=== PATIENT | female | born 1995 | race Caucasian/White ===

== ENCOUNTER 2020-12-19 19:47 | Emergency (ER) | payer OTHER, SELFPAY ==
[2020-12-19 19:59] VITALS: BP 148/88; PULSE 104; RESP 16; TEMP 36.7; O2SAT 100
--- NOTE | 2020-12-19 19:59 | ED.ANIMALBIT ---
HPI - Animal Bite General Chief Complaint: Animal Bite Stated Complaint: cat Bite Time Seen by Provider: 12/19/20 19:59 Source: patient Mode of arrival: ambulatory Limitations: no limitations History of Present Illness HPI narrative: Buffy Parsons is a 25 yo female with no PMH who came to [facility] with cat bite to medial left forearm that occurred last night and has gotten red and indurated during the day. 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 EYES: Denies visual changes, redness, discharge. ENT: Denies rhinorrhea, congestion, sore throat, otalgia. CARDIOVASCULAR: Denies chest pain, palpitations, edema. RESPIRATORY: Denies dyspnea, wheezing, cough GASTROINTESTINAL: Denies abdominal pain, nausea, vomiting, diarrhea. GENITOURINARY: Denies dysuria, hematuria, abnormal discharge SKIN: Denies rash or itching. Cat bite to left forearm NEUROLOGIC: Denies numbness, or focal weakness. PSYCHIATRIC: Denies anxiety or depression. PMFSH Past Medical History Medical History (Updated 12/19/20 @ 20:06 by Fany Falcon CNP) No acute medical problems Family History Family History (Updated 12/19/20 @ 20:01 by Fany Falcon CNP) Father Hypertension Mother Diabetes mellitus Heart disease Social History Social History (Updated 12/19/20 @ 20:02 by Fany Falcon CNP) Smoking status: Never smoker Alcohol intake: current Gender identity (if verbalized by the patient): Female Comments At time of signature, I agree with nursing past medical, surgical, social and family history. There is no relevant family history pertinent to the presenting complaint. Blood pressure elevated due to anxiety and will follow up with PCP Exam Narrative: Exam Narrative: GENERAL: This is a well-nourished, well-developed patient, in mild distress. HEAD: normocephalic, atraumatic. EYES: PERRL. Sclera clear/white. Vision is grossly intact. EARS: External ears normal, auditory canals clear and without drainage, TMs normal without perforation. Hearing grossly intact. NOSE: External nose normal without nasal discharge, nares without redness, no rhinorrhea. THROAT: Mucous membranes moist, posterior pharynx NECK: Neck supple, non-tender CARDIOVASCULAR: Regular rate and rhythm without murmurs, gallops, or rubs. RESPIRATORY: Clear to auscultation. Breath sounds equal bilaterally. No wheezes, rales, or rhonchi. GASTROINTESTINAL: Abdomen soft, non-tender, SKIN: warm, intact with no suspicious lesions or rash, good texture and turgor. Left medial side of forearm she has a 4 x 5 red induration with scabbed puncture campos, movement intact. Finger opposition intact NEURO: awake, alert, and oriented to person, place and time. There were no obvious focal neurologic abnormalities. Steady gait EXTREMITIES: Normal range of motion. BACK: Nontender without deformity Course Course Emergency Course: Patient bitten by tech cat last night arm has gotten redder and more indurated throughout the day even though it was washed well last night and has been washed since then Augmentin 875 twice daily told reasons to go to ER including fever continue spread of infection Vital Signs Vital signs: Vital Signs Temperature 98.0 F 12/19/20 19:59 Pulse Rate 104 H 12/19/20 19:59 Respiratory Rate 16 12/19/20 19:59 Blood Pressure 148/88 H 12/19/20 19:59 Pulse Oximetry 100 12/19/20 19:59 Temperature 98.0 F 12/19/20 19:59 Pulse Rate 104 H 12/06
== END 2020-12-19 20:08 | disposition home or self-care (01) ==
PROVIDERS: Emergency Provider Nurse Practitioner
DX: S51.832A Puncture wound without foreign body of left forearm, initial encounter (principal); W55.01XA Bitten by cat, initial encounter; Y99.0 Civilian activity done for income or pay
CPT/HCPCS: 99213; G0463

== ENCOUNTER 2020-12-19 21:47 | Inpatient (IN) | payer OTHER, SELFPAY ==
--- NOTE | ~2020-12-19 | XR_ITS ---
EXAMINATION: XR forearm LT 2V EXAM DATE: 12/19/2020 23:00 INDICATION: Cat bite, possible infection, distal ulnar aspect swelling. TECHNIQUE: Left forearm frontal and lateral projections obtained and reviewed. There is no prior isrrael dy for comparison. FINDINGS: There are no acute left forearm fractures or dislocations identified. There is no subcutan eous gas. Subcutaneous edema noted over the ulnar aspect of the forearm. There are no radiopaque fo reign bodies. IMPRESSION: Soft tissue swelling. No gas or osseous erosion. Reviewed, dictated and finalized at location G.
[2020-12-19 22:30] VITALS: BP 164/89; PULSE 115; RESP 20; TEMP 36.6; O2SAT 98
[2020-12-19 23:05] LABS: Basophils Absolute Auto 0.1 K/mm3 (0.0-0.1); Basophils Percent Auto 0.4 % (0.2-1.2); Eosinophils Absolute Auto 0.1 K/mm3 (0-0.3); Eosinophils Percent Auto 0.5 % (0-4.4); Hematocrit 37.6 % (37.0-47.0); Hemoglobin 11.5 g/dL (12.0-15.0); Immature Granulocyte Absolute 0.09 K/mm3 (0.00-0.031); Immature Granulocyte Percent A 0.5 % (0-0.5); Lymphocytes Absolute Auto 2.57 K/mm3 (0.9-3.2); Lymphocytes Percent Auto 15.4 % (18.3-44.2); Mean Corpuscular HGB Conc 30.6 g/dl (32-36); Mean Corpuscular Hemoglobin 25.2 pg (26-34); Mean Corpuscular Volume 82.3 fl (80-100); Mean Platelet Volume 10.4 fl (7.4-10.4); Monocytes Absolute Auto 0.8 K/mm3 (0.1-0.6); Monocytes Percent Auto 4.5 % (2.6-8.5); Neutrophils Absolute Auto 13.2 K/mm3 (1.3-6.7); Neutrophils Percent Auto 78.7 % (45.5-73.1); Platelet Count Result 279 k/mm3 (150-375); Red Blood Count 4.57 M/mm3 (4.2-5.4); Red Cell Distribution Width 17.1 % (11.5-14.5); White Blood Count 16.7 K/mm3 (4.5-10.0)
[2020-12-19 23:19] LABS: Lactic Acid Reflex 2.6 mmol/L (0.7-2.1)
[2020-12-19 23:29] LABS: Alanine Aminotransferase 16 U/L (4-35); Albumin Level 4.3 g/dL (3.5-5.1); Alkaline Phosphatase 56 U/L (38-126); Anion Gap 8 mmol/L (8-16); Aspartate Amino Transferase 38 U/L (14-36); Bilirubin,Total 0.5 mg/dL (0.2-1.3); Blood Urea Nitrogen 12 mg/dL (7-17); Calcium 9.4 mg/dL (8.4-10.2); Carbon Dioxide 28 mmol/L (22-30); Chloride 101 mmol/L (98-107); Estimated CRCL calculation 115 ml/min; Estimated Glomerular Filt Rate > 60; Glucose 121 mg/dL (65-105); Potassium 3.9 mmol/L (3.4-5.0); Sodium 137 mmol/L (137-145)
[2020-12-20] VITALS (9 sets, daily range): BP systolic 111–139; BP diastolic 58–92; PULSE 102–143; RESP 12–25; TEMP 36.1–39.6; O2SAT 96–100
--- NOTE | 2020-12-20 01:26 | PC.NURSE ---
Pt presents to ED with complaints of cat bite that occurred 12/18/20 at approx 2330. Pain rated 6/10 at this time. Erythema and swelling noted to left forearm and site is painful with palpation. Pt also complaining of generalized body aches. Subjective fevers and chills. Denies nausea, emesis and diarrhea at this time. Vitals are stable and pt alert and oriented x4 and in no obvious distress at this time. Call button and personal items within reach. Family member at bedside. Pt advised to press call button and personal items within reach. EDMD presented to bedside.
[2020-12-20] MEDS: SODIUM CHLORIDE 0.9% IV 1,000 ML 999 ML IV CONT ×2 (01:41→03:10)
[2020-12-20 02:01] LABS: Reflex Lactic Acid Yes or No Add Lactic
--- NOTE | 2020-12-20 02:15 | ED.GENADULT ---
HPI - General Adult General Chief complaint: Animal Bite Stated complaint: Cat Bite L forearm Time Seen by Provider: 12/20/20 01:06 History of Present Illness HPI narrative: Patient a 25-year-old female who presents the emerge department with chief complaint of the left forearm cellulitis. Patient reports that she was bit by her cat last night and noticed that she started having redness and swelling in the left forearm. The patient reports has had some red streaking up her arm. The patient reports she had fever chills body aches and feels generally unwell after this is started. The patient states that this happened approximately 24 hours ago and has not been on antibiotics up until this point. Patient reports the pain is worse with movement and improved with rest. Related Data Home Medications Medication Instructions Recorded Confirmed duloxetine 30 mg PO DAILY 12/19/20 12/19/20 norgestimate-ethinyl estradiol 1 tablet DAILY 12/19/20 12/19/20 [[id number]] Allergies Allergy/AdvReac Type Severity Reaction Status Date / Time No Known Allergies Allergy Unverified 10/03/18 14:43 Review of Systems Review of Systems: Narrative: A 10 system review of systems was completed on the patient and is negative except for what is stated in the HPI. Nursing and ancillary documentation was reviewed. [facility] Past Medical History Medical History No acute medical problems Family History Family History Father Hypertension Mother Diabetes mellitus Heart disease Social History Social History Smoking status: Never smoker Alcohol intake: current Gender identity (if verbalized by the patient): Female Exam Narrative: Exam Narrative: GENERAL: Well-appearing, well-nourished, and in no acute distress. HEAD: Normocephalic, atraumatic. EYES: PERRLA and EOMI. ENT: Nares clear, no rhinorrhea or epistaxis. Mucous membranes moist. NECK: Supple. CHEST: Clear to auscultation. No respiratory distress. HEART: Regular rate and rhythm. No murmur heard. Normal peripheral pulses. ABDOMEN: Soft, nontender, nondistended, normal active bowel sounds. EXTREMITIES: Normal range of motion. No edema. SKIN: Warm, dry, there is erythema of the left forearm there is streaking lymphangitis present. NEURO: No focal deficits. Alert and oriented x3. PSYCH: Normal mood and affect. Course Vital Signs Vital signs: Vital Signs Temperature 36.6 C 12/19/20 22:30 Pulse Rate 115 H 12/19/20 22:30 Respiratory Rate 20 12/19/20 22:30 Blood Pressure 164/89 H 12/19/20 22:30 Pulse Oximetry 98 12/19/20 22:30 Temperature 39.6 C H 12/20/20 01:19 Pulse Rate 126 H 12/20/20 01:19 Respiratory Rate 19 12/20/20 01:19 Blood Pressure 139/83 12/20/20 01:19 Pulse Oximetry 98 12/20/20 01:19 Medical Decision Making Vital Signs Vital Signs: Vital Signs Temperature 36.6 C 12/19/20 22:30 Pulse Rate 115 H 12/19/20 22:30 Respiratory Rate 12/19/20 22:30 Blood Pressure 164/89 H 12/19/20 22:30 Pulse Oximetry 98 12/19/20 22:30 Temperature 39.6 C H 12/20/20 01:19 Pulse Rate 126 H 12/20/20 01:19 Respiratory Rate 12/20/20 01:19 Blood Pressure 139/83 12/20/20 01:19 Pulse Oximetry 98 12/20/20 01:19 Lab Data Result diagrams: 12/19/20 22:53 12/19/20 22:53 Labs: Lab Results 12/19/20 12/19/20 12/19/20 Range/Units 22:53 22:53 22:53 WBC 16.7 H (4.5-10.0) K/mm3 RBC 4.57 (4.2-5.4) M/mm3 Hgb 11.5 L (12.0-15.0) g/dL Hct 37.6 (37.0-47.0) % MCV 82.3 (80-100) fl MCH 25.2 L (26-34) pg MCHC 30.6 L (32-36) g/dl RDW 17.1 H (11.5-14.5) % Plt Count 279 (150-375) k/mm3 MPV 10.4 (7.4-10.4) fl Immature Gran % (Auto) 0.5 (0-0.5) % Neut % (
[2020-12-20] MEDS: AMPICILLIN SULB 3 GM/NS 100 ML 3 GM/100 ML VIAL IVPB ×4 (02:39→18:20)
[2020-12-20 03:02] LABS: Lactic Acid 1.8 mmol/L (0.7-2.1)
--- NOTE | 2020-12-20 03:13 | PC.NURSE ---
Pt ambulated to restroom with steady gait noted. Specimen cup provided. spouse remains at bedside. Pt alert and oriented x4 with stable vitals and is in no obvious distress. Call button and personal items within reach. Pt advised to press call button for assistance.
--- NOTE | 2020-12-20 05:12 | PC.NURSE ---
Report called to James. Prajapati to send pt to floor.
--- NOTE | 2020-12-20 05:49 | ADMGEN ---
This patient, Buffy Parsons, was admitted to [facility] Surg Room 310-01. Patient/family oriented to hospital policies and general routines including ID bracelet, bed and alarms, visiting hours, pain management, procedures, bathroom and other care routines, personal items, smoking policy, room service/diet, and visiting hours. Information on how to activate the Rapid Response Team has been discussed. Patient/Family are encouraged to report perceived risks to care and to ask questions if they do not understand what they are told or what they should do.
[2020-12-20] MEDS: SODIUM CHLORIDE 0.9% IV 1,000 ML 125 ML IV CONT ×2 (05:57→16:58)
--- NOTE | 2020-12-20 09:25 | PM.IMHP ---
H&P: HPI History of Present Illness Date/Time: 12/20/20 09:25 PATIENT IS ADMITTED UNDER OBSERVATION Chief Complaint: Cat bite Narrative: 25yo healthy female here for left wrist cat bite with swelling, fever and pain. On the evening on 12/18/20, the patient sustained a cat bite from her own cat. Immunizations are up to date. The cat is an indoor cat. The patient used neosporin and gauze that evening and applied the same prior to work the next day. She developed a small erythematous patch left distal forearm that began to grow then streak up the left arm. She developed edema to the left upper hand and forearm. She presented to an [facility] and was given Augmentinl. She filled the Rx and returned home but her partner noted that it wasmuch worse and patient came back to ED. She did not take any of the Augmentin. She developed fevers, chills and headcahe. No n/v but with decreased appetite. Intermittent nubness in the hand and slight weakness but still able to grasp without dropping items. In the ED, she had a temperature to 103.2 with HR to 143. Hypertensive on admission as well. Left arm xray showing soft tissue swelling but no gas or osseous erosion. WBC 16.7K with lactic acid 2.6 (repeat LA normal). She was given Tyelnol, IV fluids and Unasyn. She was admitted for further care. Review of Systems Review of Systems: All systems reviewed & are unremarkable except as noted in HPI and below PMFSH Past Medical History Medical History Depression with anxiety PCOS (polycystic ovarian syndrome) Seasonal allergies Surgical History Surgical History Uterine polyp s/p removal. Benign pathology Family History Family History Father Hypertension Mother Diabetes mellitus Social History Social History Social History: She lives at home with her fiancee. They have 2 cats and 1 dog. Lifelong nonsmoker. No history of drug use. She drinks 1 alcoholic drink per week. Full code. She nominates Keysha Parker as individual would make medical decisions for her if she is unable Smoking status: Never smoker Second hand tobacco smoke exposure: No Alcohol intake: current Drinks per week: 1 Substance use: former Gender identity (if verbalized by the patient): Female Spiritual care concerns: No Meds Home Medications and Allergies Home Medications Medication Instructions Recorded Confirmed Type amoxicillin-pot clavulanate 1 tablet PO Q12H #20 tablet 12/19/20 12/20/20 Rx [Augmentin] duloxetine 30 mg PO DAILY 12/19/20 12/20/20 History norgestimate-ethinyl estradiol 1 tablet DAILY 12/19/20 12/20/20 History [[id number]] Allergies Allergy/AdvReac Type Severity Reaction Status Date / Time No Known Allergies Allergy Unverified 10/03/18 14:43 Vital Signs Vital Signs - 24 hr 12/19/20 22:30 12/20/20 01:00 12/20/20 01:19 Temperature 97.9 F 102.9 F H 103.2 F H Pulse Rate 115 H 143 H 126 H Respiratory Rate 20 12 19 Blood Pressure 164/89 H 136/92 H 139/83 Pulse Oximetry 98 99 98 12/20/20 02:19 12/20/20 03:25 12/20/20 05:42 Temperature 102.2 F H 101.8 F H 100.8 F H Pulse Rate 118 H 116 H Respiratory Rate 25 H 22 H Blood Pressure 137/72 111/58 L Pulse Oximetry 96 97 12/20/20 05:45 12/20/20 09:19 Temperature 97.7 F Pulse Rate 126 H Respiratory Rate 16 Blood Pressure 135/70 Pulse Oximetry 99 97 Exam Narrative: Exam Narrative: Tm 103.2 97.7 135/70 126 16 97% ra Gen - well-nourished, well-developed female in no acute respiratory distress who is nontoxic-appearing lying semi recumbent in bed HEENT - normocephalic. Atraumatic. Pupils equal round and reactive. Extraocular motions intact. Sclera clear and anicteric. Nares patent. Oropharyn
[2020-12-20] MEDS: DULoxetine HCL 30 MG CAPSULE.DR PO (09:59)
[2020-12-20] MEDS: ENOXAPARIN 40 MG/0.4 ML SYRINGE SUB-Q (14:30)
--- NOTE | 2020-12-20 15:39 | PHAR ---
EYG-PL-UNALCF TABLETS BROUGHT IN FROM HOME HAVE BEEN IDENTIFIED BY PHARMACY
[2020-12-20] MEDS: HYDROcodone/acetaminophen (*CRX) 5-325 MG TABLET 1 TAB PO ×2 (16:00→21:24)
[2020-12-20] MEDS: MELATONIN 5 MG TABLET PO (21:27)
[2020-12-21] MEDS: AMPICILLIN SULB 3 GM/NS 100 ML 3 GM/100 ML VIAL IVPB ×5 (00:20→23:50)
[2020-12-21] MEDS: MORPHINE SULFATE (*CRX) 4 MG/ML INJ IV PUSH (01:31)
[2020-12-21] MEDS: ONDANSETRON INJ 4 MG/2 ML VIAL IV PUSH (01:32)
[2020-12-21] MEDS: SODIUM CHLORIDE 0.9% IV 1,000 ML 125 ML IV CONT ×2 (02:50→12:02)
[2020-12-21] MEDS: HYDROcodone/acetaminophen (*CRX) 5-325 MG TABLET 1 TAB PO ×4 (02:56→23:49)
[2020-12-21 06:00] VITALS: BP 141/74; PULSE 112; RESP 16; TEMP 38.6; O2SAT 100
[2020-12-21 06:51] LABS: Basophils Absolute Auto 0.1 K/mm3 (0.0-0.1); Basophils Percent Auto 0.4 % (0.2-1.2); Eosinophils Absolute Auto 0.1 K/mm3 (0-0.3); Eosinophils Percent Auto 0.3 % (0-4.4); Hematocrit 31.7 % (37.0-47.0); Immature Granulocyte Absolute 0.07 K/mm3 (0.00-0.031); Immature Granulocyte Percent A 0.5 % (0-0.5); Lymphocytes Absolute Auto 2.36 K/mm3 (0.9-3.2); Lymphocytes Percent Auto 15.7 % (18.3-44.2); Mean Corpuscular HGB Conc 31.5 g/dl (32-36); Mean Corpuscular Hemoglobin 25.8 pg (26-34); Mean Corpuscular Volume 81.7 fl (80-100); Mean Platelet Volume 10.6 fl (7.4-10.4); Monocytes Absolute Auto 0.7 K/mm3 (0.1-0.6); Monocytes Percent Auto 4.4 % (2.6-8.5); Neutrophils Absolute Auto 11.8 K/mm3 (1.3-6.7); Neutrophils Percent Auto 78.7 % (45.5-73.1); Platelet Count Result 219 k/mm3 (150-375); Red Blood Count 3.88 M/mm3 (4.2-5.4); Red Cell Distribution Width 17.2 % (11.5-14.5)
[2020-12-21 07:00] LABS: Alanine Aminotransferase 11 U/L (4-35); Albumin Level 3.3 g/dL (3.5-5.1); Alkaline Phosphatase 55 U/L (38-126); Anion Gap 5 mmol/L (8-16); Aspartate Amino Transferase 18 U/L (14-36); Bilirubin,Total 0.4 mg/dL (0.2-1.3); Blood Urea Nitrogen 6 mg/dL (7-17); Calcium 8.2 mg/dL (8.4-10.2); Carbon Dioxide 24 mmol/L (22-30); Chloride 107 mmol/L (98-107); Estimated CRCL calculation 128 ml/min; Estimated Glomerular Filt Rate > 60; Glucose 105 mg/dL (65-105); Potassium 3.6 mmol/L (3.4-5.0); Sodium 136 mmol/L (137-145)
[2020-12-21] MEDS: ENOXAPARIN 40 MG/0.4 ML SYRINGE SUB-Q (08:21)
[2020-12-21] MEDS: DULoxetine HCL 30 MG CAPSULE.DR PO (08:21)
--- NOTE | 2020-12-21 13:38 | PM.IMPN ---
Progress Note: A&P Assessment and Plan (1) Sepsis: Code(s): A41.9 - Sepsis, unspecified organism Status: Acute Assessment and Plan: Present on admission with elevated lactic acid, elevated white count, fever and tachycardia. Related to the cellulitis to the left forearm from cat bite. Treated with normal saline and started on IV antibiotics. BCx NGTD. Fever persistent and still mildly tachycardic related to the fevers. Repeat white count slightly better. Follow WBC. Stop IV fluids. (2) Cellulitis of forearm, left: Code(s): L03.114 - Cellulitis of left upper limb Status: Acute Assessment and Plan: Patient with erythema and edema to the left forearm. Associated with sepsis symptoms. Started on Unasyn Day 2. Clinical exam improved with receding erythema but still with fevers. WBC slightly better. Continue the same. Monitor clinical exam, WBC and fever curve to ensure improvement. Plan home with Augmentin. (3) Cat bite: Qualifiers: Encounter type: initial encounter Qualified Code(s): W55.01XA - Bitten by cat, initial encounter Code(s): W55.01XA - Bitten by cat, initial encounter Status: Acute Assessment and Plan: Patietn instructed to be mindful of provoking the cat and to keep up to date on the cat's routine health maintenance. (4) DVT prophylaxis: Code(s): Z29.9 - Encounter for prophylactic measures, unspecified Status: Acute Assessment and Plan: Lovenox Subjective Date/time seen: 12/21/20 13:38 Interval history: 25yo female her for sepsis from cellulitis related to a cat bite. Slept well last night. Still having fevers. Complains of shooting pain at times down left arm at times Exam Narrative: Exam Narrative: Tm 101.4 141/74 112 16 100% ra Gen - NARD Chest - CTA bilaterally, nml RR CV - RRR S1/S2 Abd - soft. NT/ND. +BS Ext - left hand and forearm edema but not tense. Psych - normal mood and affect. Skin - faint pink erythematous rash noted anterior and medial left forearm. Erythema fading from upper arm but with darker erythema in the forearm around the old puncture site. Objective Data Vital Signs Vital Signs: Vital Signs - 24 hr 12/20/20 14:00 12/20/20 21:54 12/21/20 06:00 Temperature 96.9 F L 101 F H 101.4 F H Pulse Rate 102 H 103 H 112 H Respiratory Rate 18 16 16 Blood Pressure 135/90 131/72 141/74 H Pulse Oximetry 100 99 100 Intake/Output Intake/Output: Intake & Output 12/18/20 12/19/20 12/20/20 12/21/20 23:59 23:59 23:59 23:59 Intake Total 5130 3350 Output Total 600 1700 Balance 4530 1650 Meds/Results Medications: Active Medications Generic Name Dose Route Start Last Admin Trade Name Freq PRN Reason Stop Dose Admin Acetaminophen 650 mg 12/20/20 15:30 Acetaminophen 325 Mg Tablet PO Q6H PRN Mild Pain (1-3) or Fever Hydrocodone Bitart/Acetaminophen 1 tab 12/20/20 15:30 12/21/20 08:52 Hydrocodone/Acetaminophen (*Crx) 5-325 Mg Tablet PO 1 tab Q6H PRN Administration Pain Rated 4-6 Duloxetine HCl 30 mg 12/20/20 09:00 12/21/20 08:21 Duloxetine Hcl 30 Mg Capsule.Dr PO 30 mg DAILY MICHELLE Administration Enoxaparin Sodium 40 mg 12/20/20 09:55 12/21/20 08:21 Enoxaparin 40 Mg/0.4 Ml Syringe SUB-Q 40 mg DAILY MICHELLE Administration Ampicillin Sodium/Sulbactam Sodium 3 gm in 100 mls @ 200 mls/hr 12/20/20 07:00 12/21/20 12:02 Unasyn 3 Gm/Ns 100 Ml IVPB 200 mls/hr Q6HR MICEHLLE Administration Sodium Chloride 1,000 mls @ 125 mls/hr 12/20/20 02:25 12/21/20 12:02 Normal Saline Iv IV CONT 125 mls/hr .Q8H MICHELLE Administration Melatonin 5 mg 12/20/20 21:00 12/20/20 21:27 Melatonin 5 Mg Tablet PO 5 mg HS MICHELLE Administration Morphine Sulfate 4 mg 12/20/20 02:21 12/21/20 01:31 Morphine Sulfate (*Crx) 4 Mg/Ml Inj IV PUSH 4 mg Q2H PRN Administration Pain Rated 7-10 Non-Formulary M
[2020-12-21 14:00] VITALS: BP 130/78; PULSE 95; RESP 16; TEMP 36.1; O2SAT 95
[2020-12-21] MEDS: MELATONIN 5 MG TABLET PO (20:56)
[2020-12-21 21:44] VITALS: BP 125/82; PULSE 87; RESP 18; TEMP 36.6; O2SAT 100
[2020-12-22 05:30] VITALS: BP 121/81; PULSE 82; RESP 18; TEMP 36.7; O2SAT 97
[2020-12-22 06:22] LABS: Basophils Absolute Auto 0.1 K/mm3 (0.0-0.1); Basophils Percent Auto 0.5 % (0.2-1.2); Eosinophils Absolute Auto 0.1 K/mm3 (0-0.3); Hematocrit 35.2 % (37.0-47.0); Immature Granulocyte Absolute 0.03 K/mm3 (0.00-0.031); Immature Granulocyte Percent A 0.3 % (0-0.5); Lymphocytes Absolute Auto 2.89 K/mm3 (0.9-3.2); Lymphocytes Percent Auto 26.4 % (18.3-44.2); Mean Corpuscular HGB Conc 31.3 g/dl (32-36); Mean Corpuscular Hemoglobin 25.4 pg (26-34); Mean Corpuscular Volume 81.3 fl (80-100); Mean Platelet Volume 10.6 fl (7.4-10.4); Monocytes Absolute Auto 0.7 K/mm3 (0.1-0.6); Monocytes Percent Auto 6.1 % (2.6-8.5); Neutrophils Absolute Auto 7.2 K/mm3 (1.3-6.7); Neutrophils Percent Auto 65.7 % (45.5-73.1); Platelet Count Result 242 k/mm3 (150-375); Red Blood Count 4.33 M/mm3 (4.2-5.4); White Blood Count 10.9 K/mm3 (4.5-10.0)
[2020-12-22] MEDS: AMPICILLIN SULB 3 GM/NS 100 ML 3 GM/100 ML VIAL IVPB ×2 (06:27→11:52)
[2020-12-22] MEDS: HYDROcodone/acetaminophen (*CRX) 5-325 MG TABLET 1 TAB PO (06:57)
[2020-12-22] MEDS: DULoxetine HCL 30 MG CAPSULE.DR PO (08:21)
[2020-12-22] MEDS: ENOXAPARIN 40 MG/0.4 ML SYRINGE SUB-Q (08:21)
[2020-12-22 13:44] VITALS: BP 126/73; PULSE 79; RESP 18; TEMP 36.4; O2SAT 100
--- NOTE | 2020-12-22 15:25 | PM.DS ---
DS: Admitting Diagnosis Admitting Diagnosis Admitting Diagnosis: Left arm cellulitis DS: Discharge Diagnosis Discharge Diagnosis (1) Sepsis: Code(s): A41.9 - Sepsis, unspecified organism Status: Acute Assessment and Plan: Present on admission with elevated lactic acid, leukocytosis, fever and tachycardia. Related to the cellulitis to the left forearm from cat bite. Treated with normal saline and started on IV antibiotics. Fever resolved. Heart rate normalized. White count improved. (2) Cellulitis of forearm, left: Code(s): L03.114 - Cellulitis of left upper limb Status: Acute Assessment and Plan: Patient with erythema and edema to the left forearm that is tracking to the upper arm. Associated with sepsis symptoms. Started on Unasyn. Clinical exam improved. Pain almost resolved. Her mild left hand paresthesias resolved. Fever resolved and WBC trended down. (3) Cat bite: Qualifiers: Encounter type: initial encounter Qualified Code(s): W55.01XA - Bitten by cat, initial encounter Code(s): W55.01XA - Bitten by cat, initial encounter Status: Acute Assessment and Plan: Patietn instructed to be mindful of provoking the cat and to keep up to date on her routine health maintenance. Cat is in isolation due to animal control DS: Summary Hospital Course Reason for hospitalization: 25yo female here for left forearm cat bite that resulted in fever, left upper extremity tracking erythema and edema. Please see H&P for details Hospital Course: Please see above for details of hospital course Status at Discharge Cognitive/behavioral status at discharge: stable Time Spent with Patient Time attestation: Total time spent providing and/or coordinating discharge services:35 minutes Time spent: Greater than 30 minutes Exam Narrative: Exam Narrative: AF 97.6 126/73 79 18 100% ra Gen - NARD Chest - CTA bilaterally, nml RR CV - RRR S1/S2 Abd - soft. NT/ND. +BS Ext - left hand and forearm resolving edema Psych - normal mood and affect. Skin - faint pink erythematous rash noted distal medial left forearm. Upper arm erythema resolved DS: Data Data Completed and Pending Labs on day of discharge: Labs from last 24 hours 12/22/20 05:57 WBC 10.9 H RBC 4.33 Hgb 11.0 L Hct 35.2 L MCV 81.3 MCH 25.4 L MCHC 31.3 L RDW 17.0 H Plt Count 242 MPV 10.6 H Immature Gran % (Auto) 0.3 Neut % (Auto) 65.7 Lymph % (Auto) 26.4 [place] % (Auto) 6.1 Eos % (Auto) 1.0 Baso % (Auto) 0.5 Lymph # (Auto) 2.89 [place] # (Auto) 0.7 H Eos # (Auto) 0.1 Baso # (Auto) 0.1 Abs Immat Gran (auto) 0.03 Absolute Neuts (auto) 7.2 H Absolute Nucleated RBC 0.0 Nucleated RBC % 0.0 Preliminary micro results at discharge 12/19/20 22:53 Blood Culture - Preliminary Blood 12/20/20 02:30 Blood Culture - Preliminary Blood Discharge Plan Discharge Attending physician on discharge: Yonatan Macias Discharging Clinician: Yonatan Macias Anticipated Discharge Date/Time: 12/22/20 15:37 Patient Disposition: Home, Self-Care Activity: as tolerated Diet: regular Discharge Instructions: Please avoid large gathering, wear face coverings in public and practice social distance. Please complete your antibiotic course even if you are starting to feel well. Contact your doctor or come to the Emergency Room if you have recurrent fevers, worsening redness to the left arm or other worrisome symptoms. Follow-up with your doctor in 1-2 weeks. Please call for appointment. Patient Instructions: Antibiotic Form, Cellulitis (GEN), Pain Management (DC) Stand Alone Forms: General Discharge Information Follow-up/Referrals: PHYSICIAN NOT ON STAFF,NONSTAFF [Primary Care Provider] - Follow Up with Primary Dr Discharge Medications: Continued duloxetine 30 mg capsule,delayed release(DR/EC) 30 mg PO DAILY RF: 0 no
== END 2020-12-22 15:55 | disposition home or self-care (01) | DRG 872 ==
LOC: ANHED 12-20 02:26 → ANH3MEDSUR 12-20 07:16
PROVIDERS: Admitting Provider Internal Medicine; Emergency Provider Emergency Medicine; Visit Provider Internal Medicine
DX: A41.9 Sepsis, unspecified organism (principal); L03.114 Cellulitis of left upper limb; W55.01XA Bitten by cat, initial encounter; E28.2 Polycystic ovarian syndrome; F41.8 Other specified anxiety disorders
CPT/HCPCS: 36415; 73090; 80048; 80053; 80076; 83605; 85025; 87040; 96361; 96365; 96366; 96372; 96375; 96376; 99285; A9270; G0378; J0131; J0295; J1650; J2270; J2405; J7030

== ENCOUNTER 2021-02-01 13:38 | Emergency (ER) | payer OTHER, SELFPAY ==
--- NOTE | 2021-02-01 13:41 | ED.URI ---
HPI - URI/Sore Throat General Chief Complaint: Nausea/Vomiting/Diarrhea Stated Complaint: diarrhea/cough/chest congestion/mucus Time Seen by Provider: 02/01/21 14:06 Source: patient and RN notes reviewed Mode of arrival: ambulatory Limitations: no limitations History of Present Illness HPI Narrative: 25 old female presents with multiple concerns. She reports diarrhea with 5-6 watery diarrhea stools daily for the last 5 days. She reports symptoms started when she returned from her honeymoon in [place]. She denies nausea, vomiting, diarrhea. Reports occasional decreased appetite. She also reports a cough that started prior to her trip to [place]. Reports she has had 2 negative Covid test and has been vaccinated. She reports symptoms started as nasal congestion and then turned into a productive cough. She denies shortness of breath, rhinorrhea, nasal congestion, sore throat. MD elicited complaint: cough and other (Diarrhea) Related Data Home Medications Medication Instructions Recorded Confirmed duloxetine 30 mg PO DAILY 12/19/20 12/20/20 norgestimate-ethinyl estradiol 1 tablet DAILY 12/19/20 12/20/20 [[id number]] Allergies Allergy/AdvReac Type Severity Reaction Status Date / Time No Known Allergies Allergy Unverified 10/03/18 14:43 Review of Systems Review of Systems: Narrative: CONSTITUTIONAL: Denies malaise, chills, sweats, or fever. EYES: Denies visual changes, redness, or discharge. ENT: Denies rhinorrhea, congestion, sinus pain, otalgia or sore throat. CARDIOVASCULAR: Denies chest pain, palpitations, or edema. RESPIRATORY: Reports cough. Denies dyspnea. GASTROINTESTINAL: Denies abdominal pain, nausea, vomiting. Reports diarrhea, 5-6 watery diarrhea stools daily, decreased appetite GENITOURINARY: Denies dysuria or hematuria. MUSCULOSKELETAL: Denies myalgia. NEUROLOGIC: Denies headache. All systems reviewed & are unremarkable except as noted in HPI and below PMFSH Past Medical History Medical History Depression with anxiety PCOS (polycystic ovarian syndrome) Seasonal allergies Surgical History Surgical History Uterine polyp s/p removal. Benign pathology Family History Family History Father Hypertension Mother Diabetes mellitus Social History Social History Social History: She lives at home with her marycarmene. They have 2 cats and 1 dog. Lifelong nonsmoker. No history of drug use. She drinks 1 alcoholic drink per week. Full code. She nominates Keysha Parker as individual would make medical decisions for her if she is unable Smoking status: Never smoker Second hand tobacco smoke exposure: No Alcohol intake: current Drinks per week: 1 Substance use: former Gender identity (if verbalized by the patient): Female Spiritual care concerns: No Comments At time of signature, agree with nursing past medical, surgical, social and family history. There is no relevant family history pertinent to the presenting complaint Exam Narrative: Exam Narrative: GENERAL: Well-appearing, well-nourished, and in no acute distress. HEAD: Normocephalic, atraumatic. EYES: PERRLA, conjunctivae clear, and EOMI. No nystagmus. ENT: Nares clear. Mucous membranes moist. TM pearly rubio with sharp light reflex bilaterally; no tragal tenderness. Oropharynx without erythema or lesions. Tonsils not enlarged and without exudate. NECK: Supple. No lymphadenopathy. CHEST: No respiratory distress. Clear to auscultation. No bony deformities, no asymmetry. Speaks in full sentences. HEART: Regular rate and rhythm. No murmur heard. Normal peripheral pulses. ABDOMEN: Soft, nontender, nondistended, normal active bowel sounds, no palpable masses. SKIN: Warm, dry, no rash. NEURO: Alert and oriented x3.
[2021-02-01 13:46] VITALS: BP 140/98; PULSE 105; RESP 16; TEMP 36.2; O2SAT 100
== END 2021-02-01 14:21 | disposition home or self-care (01) ==
PROVIDERS: Emergency Provider Nurse Practitioner
DX: A09 Infectious gastroenteritis and colitis, unspecified (principal); E28.2 Polycystic ovarian syndrome
CPT/HCPCS: 99213; G0463

== ENCOUNTER 2022-03-19 21:34 | Emergency (ER) | payer OTHER, SELFPAY ==
--- NOTE | ~2022-03-19 | XR_ITS ---
XR hand LT min 3V 03/19/2022 21:58 Indication: Left hand pain Procedure: 4 views left hand Comparison: 12/19/2020 Findings: There is a comminuted displaced, angulated extra-articular fracture proximal aspect of the fifth metacarpal. There is soft tissue swelling. No foreign bodies. Impression: 1: Comminuted displaced, angulated extra-articular fracture proximal aspect of the left fifth metacar pal. Reviewed, dictated and finalized at location A. Impression: 1: Comminuted displaced, angulated extra-articular fracture proximal aspect of the left fifth metacarpal.
[2022-03-19 21:36] VITALS: BP 136/87; PULSE 91; RESP 18; TEMP 36.7; O2SAT 100
--- NOTE | 2022-03-19 22:39 | ED.UPPEXIN ---
HPI - Extremity Injury (Upper) General Chief Complaint: Extremity Injury, Upper Stated Complaint: hand pain Time Seen by Provider: 03/19/22 21:48 History of Present Illness HPI narrative: 26-year-old female presents emergency room secondary injury to her left hand. Happened when she fell when she was skateboarding. She was not wearing a helmet but did not hit her head. She got a small hematoma to the medial aspect of her left leg. But she states she is can walk without any difficulty. Denies any neck, chest, abdominal, or back pain. This happened just prior to presentation emergency room. She is right-hand dominant. She works as a nurse here in our hospital. Related Data Home Medications Medication Instructions Recorded Confirmed duloxetine 30 mg capsule,delayed 30 mg PO DAILY 12/19/20 12/20/20 release norgestimate 0.18 mg/0.215 mg/0.25 1 tablet DAILY 12/19/20 12/20/20 mg-ethinyl estradiol 25 mcg tablet ([id number]) Allergies Allergy/AdvReac Type Severity Reaction Status Date / Time No Known Allergies Allergy Unverified 10/03/18 14:43 Review of Systems Review of Systems: CONSTITUTIONAL: Denies fever, chills, or sweats. EYES: Denies visual changes, redness, or discharge. ENT: Denies rhinorrhea, congestion, sore throat, or otalgia. CARDIOVASCULAR: Denies chest pain, palpitations, or edema. RESPIRATORY: Denies cough or dyspnea. GASTROINTESTINAL: Denies abdominal pain, nausea, vomiting, or diarrhea. GENITOURINARY: Denies dysuria or hematuria. SKIN: Denies rash or itching. MUSCULOSKELETAL: Pain to the left hand NEUROLOGIC: Denies headache, numbness, or weakness. PSYCHIATRIC: Denies anxiety or depression. [facility] Past Medical History Medical History Depression with anxiety PCOS (polycystic ovarian syndrome) Seasonal allergies Surgical History Surgical History Uterine polyp s/p removal. Benign pathology Family History Family History Father Hypertension Mother Diabetes mellitus Social History Social History Social History: She lives at home with her fiancee. They have 2 cats and 1 dog. Lifelong nonsmoker. No history of drug use. She drinks 1 alcoholic drink per week. Full code. She nominates Keysha Parker as individual would make medical decisions for her if she is unable Smoking status: Never smoker Second hand tobacco smoke exposure: No Alcohol intake: current Drinks per week: 1 Substance use: former Gender identity (if verbalized by the patient): Female Spiritual care concerns: No Exam Narrative: APPEARANCE: Well appearing, no pain or distress, well-nourished. Head Normocephalic and atraumatic. EYES: PERRLA/EOMI, conjunctivae clear. NOSE: Normal with no drainage EARS:TMS clear with Mcintyre, with good light reflex. THROAT: Pharynx clear, no exudate. NECK: Supple. No adenopathy, no masses. RESPIRATORY: Airway patent, respirations nonlabored. Clear to auscultation bilaterally, no rales, rhonchi, wheezing. CARDIOVASCULAR: Regular rate and rhythm without murmurs, rubs, or gallops. ABDOMINAL: Soft, nontender, nondistended, no hepatosplenomegaly Musculoskeletal: Swelling noted to the left hand around the fifth metacarpal area. No tenderness to the wrist. Small abrasion to the left shoulder with full range of motion. Small ecchymotic area noted to the medial aspect of the left distal thigh area again with full range of motion. NEURO: Alert. Cranial nerves II through XII intact. Normal gait. Good coordination. Nonfocal examination. SKIN:: Warm, dry. Normal Color PSYCHIATRIC: Normal affect/mood, normal interaction Course Vital Signs Vital signs: Vital Signs Temperature 98.1 F 03/19/22 21:36 Pulse Rate 91 03/19/22 21:36 Respiratory Rate 18 03/19/22
[2022-03-19 23:14] VITALS: PULSE 89; RESP 18; O2SAT 98
--- NOTE | 2022-05-05 08:19 | PC.NURSE ---
LATE ENTRY This note is being entered to document information to the patient's record. The following information was omitted on [03/19/22], by [China Sage RN]. ulnar gutter splint applied to left hand/wrist.
== END 2022-03-19 23:19 | disposition home or self-care (01) ==
PROVIDERS: Emergency Provider Emergency Medicine
DX: S62.397A Other fracture of fifth metacarpal bone, left hand, initial encounter for closed fracture (principal); E28.2 Polycystic ovarian syndrome; F41.8 Other specified anxiety disorders; V00.131A Fall from skateboard, initial encounter; Y93.51 Activity, roller skating (inline) and skateboarding
CPT/HCPCS: 29125; 73130; 99284

== ENCOUNTER 2022-03-24 00:35 | Day surgery (SDC) | payer OTHER, SELFPAY ==
[2022-03-22 16:10] VITALS: BMI 33.5
--- NOTE | 2022-03-22 16:32 | PC.NURSE ---
Report to the Outpatient Waiting Room, entrance under the green pavilion located off [facility], at time 0700 on date 03/24/22. OR Time: 0900_. - You and your visitor will be asked to self-screen and do not enter if you have any COVID symptoms. - Only one visitor and NO children visitors are allowed at this time. - The patient visitor is requested to leave or wait in car when not with patient due to restrictions. - A mask is required within the hospital. Patients may have clear liquids (water, carbonated beverages, clear teas, apple juice) until 3 hours prior to surgery with a maximum of 20 ounces. - No food from midnight until time of surgery - Infants may have breast milk until 4 hours before surgery, formula 6 hours prior to surgery. - Children will be allowed to drink immediately following surgery. If applicable, please bring a bottle or sippy cup to assist with drinking. Juice, water, soda, and popsicles are readily available. For infants on formula, please bring formula the day of surgery. Pacifiers are allowed. Take the following medications with a SIP of water the morning of surgery: _antidepressants Medications to discontinue per physician Date to take last dose Please no make-up, nail bhutanese, hairspray, perfume, deodorant, or body powder the day of surgery. No jewelry (including any body piercings) or valuables the day of surgery, leave them at home. Please take a shower or bath the night before, or the morning of, surgery with an antibacterial soap. Wear comfortable, loose fitting clothing. Children are encouraged to wear pajamas. - Jewelry must be removed prior to entering the operating room. Rings and piercings that are not removed may be cut off. - The hospital will not accept responsibility for valuables. - Please leave all valuables, including medications, at home the day of surgery. If you are going home after surgery, a licensed regional company flatbed truck driver must drive you home. - NO public transportation without another adult. - We recommend that an adult stay with you for 24 hours following discharge. - We also recommend that you do not drive, make important decision, drink alcoholic beverages, or take any drugs that were not prescribed by your health care provider for at least 24 hours after your discharge time. For Pediatric surgeries, we recommend two adults accompany the child home (only one inside the building at this time). Follow any additional instructions given to you from your surgeon. If you or anyone in your household have experienced Covid symptoms in the past week, please notify your surgeon or the nurse liaison at the phone number below for possible testing. Telephone instructions given to Buffy Parsons and asked if any additional questions and then verbalized understanding. Patient advised to call surgeon office or pre surgery nurse liaison [phone] if any additional questions.
--- NOTE | ~2022-03-24 | XR_ITS ---
EXAMINATION: XR surgery orthopedic DATE: 03/24/2022 12:15 INDICATION: ORIF of a fracture at the base of the left fifth metacarpal TECHNIQUE: 8 fluoroscopic images of the left hand were obtained during procedure performed by Dr. Cindy lovett. Radiologist was not present for the imaging or procedure. The amount of fluoroscopy time used dur ing this procedure was 2.5 minutes. COMPARISON: Left hand radiographs dated 03/19/2022 FINDINGS: Interval reduction and internal fixation of an extra articular fracture at the base of the left fifth metacarpal, initially with an interfragmentary screw and subsequently with a dorsal malleable plate and screws. Alignment post fixation appears near-anatomic. Expected intra-articular and soft tissue g as at the operative bed. No new fractures identified. Joint spaces are normal. IMPRESSION: 1. Near-anatomic alignment post open reduction internal fixation of an extra-articular fracture at th e base of the left fifth metacarpal. Reviewed, dictated and finalized at location A. IMPRESSION: 1. Near-anatomic alignment post open reduction internal fixation of an extra-ar ticular fracture at the base of the left fifth metacarpal.
--- NOTE | 2022-03-24 07:18 | WPDHPUPDATE1 ---
History and Physical Update Update Date/Time: 03/24/22 07:18 History and Physical has been reviewed, including an updated exam of the patient. There are NO changes in the patient's condition. Risks, benefits, and alternatives have been discussed and questions answered. Patient agrees to proceed with procedure.
--- NOTE | 2022-03-24 07:45 | WPDANESEPPF ---
Anes - Initial Pre Proc Eval Procedure: Operation Date: 03/24/22 09:00 Proposed Procedures p Open Reduction Internal Fixation Displaced Left Fifth Metacarpal Base Fracture - Roberto Serrano MD Date/Time: 03/24/22 07:45 Surgeon: Roberto Serrano MD Pre Op Diagnosis: left 5th metacarpal base fx Patient Data Age: 26 Gender: F Height: 1.8 m Weight: 109 kg Allergies Allergy/AdvReac Type Severity Reaction Status Date / Time No Known Allergies Allergy Unverified 10/03/18 14:43 Home Medications Medication Instructions Recorded Confirmed Type duloxetine 30 mg capsule,delayed 90 mg PO DAILY 12/19/20 03/22/22 History release norgestimate 0.18 mg/0.215 mg/0.25 1 tablet DAILY 12/19/20 03/22/22 History mg-ethinyl estradiol 25 mcg tablet ([id number]-Ms-[id number]) hydrocodone 5 mg-acetaminophen 325 1 tablet PO Q8H PRN pain #14 tabs 03/19/22 03/22/22 Rx mg tablet naproxen 500 mg tablet (Naprosyn) 500 mg PO BID PRN pain #20 tabs 03/19/22 03/22/22 Rx aripiprazole 2 mg tablet 1.5 mg PO DAILY 03/22/22 03/22/22 History cetirizine 5 mg tablet 5 mg PO DAILY PRN Allergy Symptoms 03/22/22 03/22/22 History escitalopram oxalate 20 mg tablet 20 mg PO DAILY 03/22/22 03/22/22 History lithium carbonate 150 mg capsule 300 mg PO HS 03/22/22 03/22/22 History Patient hx anesthesia problems: none Family hx anesthesia problems: none Results Review: All pre-operative results and documents have been reviewed as part of the pre-operative evaluation. [facility] Past Medical History Medical History (Updated 03/24/22 @ 07:46 by Zurdo Acevedo MD) Depression with anxiety Obesity PCOS (polycystic ovarian syndrome) Seasonal allergies Surgical History Surgical History Uterine polyp s/p removal. Benign pathology Family History Family History Father Hypertension Mother Diabetes mellitus Social History Social History Social History: She lives at home with her marycarmene. They have 2 cats and 1 dog. Lifelong nonsmoker. No history of drug use. She drinks 1 alcoholic drink per week. Full code. She nominates Keysha Parker as individual would make medical decisions for her if she is unable Smoking status: Never smoker Second hand tobacco smoke exposure: No Alcohol intake: current Drinks per week: 1 Substance use: never Living arrangements: alone Gender identity (if verbalized by the patient): Female Spiritual care concerns: No Anes - Eval Final PreProcedure Day of Procedure 03/24/22 07:45 Patient weight: obese Heart: regular rate and rhythm Lungs: clear to auscultation Airway: Mallampati scale class 1 Neurological: alert and oriented Last oral intake: >/= 8 hours ASA classification: II Emergent: no Anesthetic plan: proceed Anesthesia type and monitoring: general LMA and standard monitoring Results Review: All pre-operative results and documents have been reviewed as part of the pre-operative evaluation. Informed Consent: The patient's anesthetic plan and its attendant risks and benefits were discussed with the patient/family/POA. Questions were solicited and answers provided to the satisfaction of the patient/family/POA.
[2022-03-24] MEDS: ACETAMINOPHEN 500 MG TABLET 1000 MG PO (07:47)
[2022-03-24] MEDS: LACTATED RINGERS 1,000 ML 30 ML IV CONT ×2 (08:10→12:25)
[2022-03-24 08:23] VITALS: BP 144/84; PULSE 90; RESP 16; TEMP 35.6; O2SAT 99
[2022-03-24] MEDS: KETOROLAC 15 MG/ML VIAL (*BKC) IV PUSH (08:28)
[2022-03-24 08:58] LABS: Lithium 0.2 mmol/L (0.6-1.2)
[2022-03-24] MEDS: ceFAZolin 2 GM/D5W 50 ML 2 GM/50 ML BAG IVPB (09:02)
--- NOTE | 2022-03-24 09:57 | SUR.OPER ---
3 SILVER COLOR EARINGS IN RIGHT EAR BALL SHAPE ALMAZ SIGNED PER PATIENT IN PRE OP.
[2022-03-24] MEDS: LIDO 1%/EPINEPHRINE 1:100,000 10 ML VIAL 7 ML INFILTRATE (12:01)
[2022-03-24 12:25] VITALS: BP 135/75; PULSE 97; RESP 23; TEMP 36.1; O2SAT 98
[2022-03-24 12:40] VITALS: BP 120/79; PULSE 99; RESP 17; O2SAT 100
[2022-03-24 12:55] VITALS: BP 115/78; PULSE 87; RESP 14; O2SAT 96
[2022-03-24 13:03] VITALS: BP 120/69; PULSE 84; RESP 16
[2022-03-24 13:40] VITALS: BP 114/72; PULSE 77; RESP 12
--- NOTE | 2022-03-24 19:23 | P.OP_ITS ---
Procedure Note - Detailed Date of Procedure 03/24/22 Pre-op Diagnosis left 5th metacarpal base fx Post-op Diagnosis Same Procedure Performed Open reduction and internal plate fixation of left 5th metacarpal base fracture Surgeon Roberto Serrano MD Transportation Security Screener Ioana S Anesthesia General Description of Procedure The left 5th finger was marked on the patient waiting in the holding area with her splint on. She was rolled to the operating room where she was placed supine on the operating table. She was given general endotracheal anesthesia and the left upper extremity was prepped and draped in the usual fashion. C-arm images were made for localization of the fracture using a 25 gauge needle. The site was marked for the actual incision and locally infiltrated with 1% lidocaine with epinephrine. The extremity was exsanguinated with an Esmarch bandage and the tourniquet inflated to 250 mmHg. The incision was made centered on the fracture site running longitudinally. Blunt dissection through the subcutaneous tissue identified sensory nerves to the dorsum of the hand. The largest of these was looped out of the way with an extensor tendon and a vessel loop. Capsule and periosteum were incised and bone was exposed. The base of the metacarpal was intact. There were 2 other very small fragments. There was a smaller fragment on the volar aspect of the fracture site and the shaft was otherwise intact. A 0.035 in C wire was inserted in the base for a joystick to manipulate the base. A small divot was made in the dorsal lateral aspect of staff to allow manipulation of the shaft with the pick end of the Ramos tremor. Excellent reduction was obtained. Prior to applying the plate a single 2 mm lag screw was placed between the 2 largest fragments, the shaft and the base. This was very helpful prior to application of the plate. A 2 mm T-plate from the modular handset was chosen. Two holes were cut off the long end, the cross member was bent to fit the base fragment. The plate was stabilized with the plate-holding forceps. 2 mm screws were placed the ventrally to along the long stem and 3 at the T and. Multiple C-arm images were made demonstrating no screws in the joint space and appropriate length of each screw. There was no significant rotation of the digit, tendons glided freely. The 2 mm bur was used to reduce the dorsal lip of the hamate where it appeared the transverse limb of the T plate might impinge with extension of the wrist. We covered the plate with any available tissue using 4-0 Vicryl. The vein loop was released from the cutaneous nerve. The skin was closed with intradermal 4-0 Monocryl and glue. No splint was applied. The hand was wrapped in thick gauze and a 3 in Liam wrap. The tourniquet was released. It had been released for 15 minutes at the 90 minutes point and was up for about 30 more minutes. Estimated Blood Loss 20 Tourniquet Time 134 Drains No Packing No Pathology None sent Complications No immediate complications Condition Stable Disposition PACU
== END 2022-03-24 13:55 | disposition home or self-care (01) ==
PROVIDERS: Visit Provider Plastic Surgery
PROC: (CPT 26615; principal; 2022-03-24 09:00)
DX: S62.317A Displaced fracture of base of fifth metacarpal bone, left hand, initial encounter for closed fracture (principal); F41.8 Other specified anxiety disorders; E28.2 Polycystic ovarian syndrome; E66.9 Obesity, unspecified; Z68.33 Body mass index [BMI] 33.0-33.9, adult; X58.XXXA Exposure to other specified factors, initial encounter; Y93.51 Activity, roller skating (inline) and skateboarding
CPT/HCPCS: 26615; 36415; 80178; 99199; A9270; C1713; J0690; J1885; J2250; J3010; J7120

== ENCOUNTER 2022-08-09 19:44 | Emergency (ER) | payer OTHER, SELFPAY ==
[2022-08-09 19:50] VITALS: BP 137/87; PULSE 105; RESP 16; TEMP 36.9; O2SAT 99
--- NOTE | 2022-08-09 19:50 | ED.FEMALEGU ---
HPI - Female Genitourinary General Chief complaint: Urogenital-Female Stated complaint: UTI Time Seen by Provider: 08/09/22 19:50 Source: patient, RN notes reviewed and old records reviewed Mode of arrival: ambulatory Limitations: no limitations History of Present Illness HPI Narrative: 26-year-old female presents to the [facility] with thinking she might have a UTI. Patient states since Tuesday she has had urgency, burning, frequency and feeling like she can not empty her bladder. Denies any abdominal pain, chest pain, nausea, vomiting or fevers Related Data Home Medications Medication Instructions Recorded Confirmed duloxetine 30 mg capsule,delayed 90 mg PO DAILY 12/19/20 08/09/22 release aripiprazole 2 mg tablet 1.5 mg PO DAILY 03/22/22 08/09/22 cetirizine 5 mg tablet 5 mg PO DAILY PRN Allergy Symptoms 03/22/22 08/09/22 escitalopram oxalate 20 mg tablet 20 mg PO DAILY 03/22/22 08/09/22 lithium carbonate 150 mg capsule 300 mg PO HS 03/22/22 08/09/22 Allergies Allergy/AdvReac Type Severity Reaction Status Date / Time No Known Allergies Allergy Verified 08/09/22 19:45 Review of Systems Review of Systems: All systems reviewed & are unremarkable except as noted in HPI and below Constitutional: Constitutional: Reports no additional constitutional complaints Eyes: Eyes: Reports no additional eye complaints ENT: Reports system reviewed and no additional complaints, except as documented Cardiovascular: Cardiovascular: Reports no additional cardiovascular complaints, Denies chest pain and Denies dyspnea Respiratory: Respiratory: Reports no additional respiratory complaints, Denies chest congestion, Denies cough and Denies dyspnea Gastrointestinal: Gastrointestinal: Reports no additional gastrointestinal complaints, Denies abdominal pain, Denies nausea and Denies vomiting Genitourinary: Genitourinary: Reports as per HPI and Reports dysuria Musculoskeletal: Musculoskeletal: Reports no additional musculoskeletal complaints Integumentary/Breasts: Skin/Breast: Reports system reviewed and no additional complaints, except as docu Neurologic: Reports system reviewed and no additional complaints, except as documented Psychiatric: Psychiatric: Reports no additional psychiatric complaints Allergic/Immunologic: Allergic/Immunologic: Reports no additional allergic/immunologic complaints PMFSH Past Medical History Medical History Anemia Depression with anxiety Obesity PCOS (polycystic ovarian syndrome) Seasonal allergies Surgical History Surgical History Uterine polyp (~02/06/20) s/p removal. Benign pathology Family History Family History Father Hypertension Mother Diabetes mellitus Grandparent Heart disease maternal grandmother Social History Social History Social History: She lives at home with her marycarmene. They have 2 cats and 1 dog. Lifelong nonsmoker. No history of drug use. She drinks 1 alcoholic drink per week. Full code. She nominates Keysha Parker as individual would make medical decisions for her if she is unable Smoking status: Never smoker Second hand tobacco smoke exposure: No Alcohol intake: current Drinks per week: 1 Substance use: never Gender identity (if verbalized by the patient): Female Spiritual care concerns: No Comments At the time of my signature, I reviewed and agree with the nursing past medical, surgical, social, and family history. There is no relevant family history pertinent to the patient complaint. Exam Const: General: cooperative, healthy appearing, comfortable, no acute distress, well developed, alert and well nourished Nutritional Appearance: well nourished Orientation/consciousness: patient oriented x3 Limitations: no limi
== END 2022-08-09 20:06 | disposition home or self-care (01) ==
PROVIDERS: Emergency Provider Nurse Practitioner
DX: N39.0 Urinary tract infection, site not specified (principal); F41.8 Other specified anxiety disorders; E66.9 Obesity, unspecified; Z68.33 Body mass index [BMI] 33.0-33.9, adult; E28.2 Polycystic ovarian syndrome
CPT/HCPCS: 81003; 87077; 87086; 87186; 99213; G0463

== ENCOUNTER 2024-08-30 09:59 | Emergency (ER) | payer OTHER, SELFPAY ==
--- NOTE | 2024-08-30 10:21 | ED.URI ---
HPI - URI/Sore Throat General Chief Complaint: Upper Respiratory Infection Stated Complaint: Cough/Sore Throat Time Seen by Provider: 08/30/24 10:25 Source: patient, RN notes reviewed and old records reviewed Mode of arrival: ambulatory Limitations: no limitations History of Present Illness HPI Narrative: Patient with 2 day history of runny nose, headache, postnasal drainage, cough, sore throat, more tired than normal. Has been taking ibuprofen for her symptoms with moderate relief. She reports all symptoms are exacerbated by cough. She denies any sputum production or fever. Denies any shortness of breath. She denies any injury or trauma. Voices no other concerns or complaints today. Related Data Home Medications ?Medication ?Instructions ?Recorded ?Confirmed ?Last Taken ?Type cetirizine 5 mg tablet 5 mg PO DAILY PRN Allergy Symptoms 03/22/22 09/14/23 03/24/22 History escitalopram oxalate 20 mg tablet 20 mg PO DAILY 03/22/22 09/14/23 03/24/22 History cariprazine 1.5 mg capsule 1.5 mg PO DAILY 09/08/22 09/14/23 Unknown History (Vraylar) metformin 500 mg tablet,extended mg PO 08/30/24 Unknown History release 24 hr phentermine 15 mg capsule mg 08/30/24 Unknown History Allergies Allergy/AdvReac Type Severity Reaction Status Date / Time No Known Allergies Allergy Verified 08/30/24 10:09 Review of Systems Review of Systems: All systems reviewed & are unremarkable except as noted in HPI and below Constitutional: Constitutional: Reports no additional constitutional complaints, Reports headache(s) and Reports lethargy ENT: Reports system reviewed and no additional complaints, except as documented, Reports nasal congestion, Reports nasal discharge and Reports sore throat Cardiovascular: Cardiovascular: Reports no additional cardiovascular complaints Respiratory: Respiratory: Reports no additional respiratory complaints and Reports cough Gastrointestinal: Gastrointestinal: Reports no additional gastrointestinal complaints [facility] Past Medical History Medical History Anemia Depression with anxiety Encounter for screening examination for sexually transmitted disease Obesity PCOS (polycystic ovarian syndrome) Seasonal allergies Surgical History Surgical History History of orthopedic surgery (~01/2022) left hand surgery crushed hand and has plates and pins inserted History of gynecological procedure (02/06/20) vaginal cyst removed; benign Uterine polyp (~02/06/20) s/p removal. Benign pathology Family History Family History Father Hypertension Mother Diabetes mellitus Grandparent Heart disease maternal grandmother Social History Social History Social History: She lives at home with her fiancee. They have 2 cats and 1 dog. Lifelong nonsmoker. No history of drug use. She drinks 1 alcoholic drink per week. Full code. She nominates Keysha Parker as individual would make medical decisions for her if she is unable Smoking status: Never smoker Second hand tobacco smoke exposure: No Alcohol intake: current Drinks per week: 1 Substance use: current Substance use type: marijuana Other substance usage details: 3 x week Do You Feel Safe in your Home?: Yes Lack of Transportation: No Lack of Food: Never True Current Housing: I Have Housing Concerned About Future Housing: No Difficulty Paying Gas/Electric Bills: No Difficulty Paying for Meds: No Currently Unemployed: No Education: Bachelor's Degree Difficulty w/ Childcare or Family Care: No Living arrangements: other Additional living arrangements comments: single Occupation/Education: occupation Additional occupation/education comments: nurse Gender identity (if verbalized by the patient): Female Sexual Orientation (if Verbalized by the Patient): Bisexual Spiritual care concerns: No Comments At the time of my signature, I reviewed and agree with the nursing past medical, surgical, social, and family history. There is no relevant family history pertinent to the patient complaint. Exam Const: General: cooperative, no acute distress, alert and awake Orientation/consciousness: oriented to person, oriented to place and oriented to time HENMT: Head: normal to inspection Mouth: Yes moist mucous membranes Throat: postnasal drainage Resp: Effort & Inspection: normal respiratory effort and able to speak in complete sentences Auscultation: clear to auscultation bilaterally, no crackles, no rales, no rhonchi and no wheezes Cardio: Palpation: normal PMI Rate: regular rate Rhythm: regular rhythm Heart sounds: S1 normal heart sound present and S2 normal heart sound present Neuro: General: oriented to person, oriented to place and oriented to time Cranial nerves: Yes CN's II-XII intact bilaterally Psych: Appearance: grossly normal Thought process: Normal thought process present Insight: Good insight present (Psych) Judgement: Good judgement present (Psych) Course Course Level of Care: Express Care Visit Vital Signs Vital signs: Reviewed MDM - URI/Sore Throat MDM Narrative Medical decision making narrative: Patient with reassuring physical exam, negative COVID, negative flu, negative strep. Culture pending. Supportive care measures discussed. Discharge instructions reviewed with patient, as well as provided in writing per nursing staff. The instructions also include specific and strict return/GO TO THE ER as well as f/u information. All questions have been answered, and the patient deny any further questions with discharge and discharge plan. Some parts of this dictation were generated by voice recognition software and may contain typographical and/or grammatical inaccuracies. Differential Diagnosis Differential diagnosis: Likely upper respiratory infection, otitis media, sinusitis, viral infection, influenza and pharyngitis Medical Records Attestation: I reviewed the patient's medical records. Lab Data Attestation: I reviewed the patient's lab results. Discharge Plan Discharge Clinical Impression: Upper respiratory infection Qualifiers: URI type: unspecified viral URI Qualified Code(s): J06.9 - Acute upper respiratory infection, unspecified Patient Disposition: Home, Self-Care Condition: Stable Instructions: Antibiotic Form, Cold Symptoms (ED) Additional Instructions: Take medications as prescribed. Follow with primary care provider. Emergency department for new or worse symptoms Patient Language: Georgian Prescriptions: New benzonatate 200 mg capsule 200 mg PO TID PRN (Reason: cough) Qty: 30 0RF No Action metformin 500 mg tablet extended release 24 hr PO phentermine 15 mg capsule Vraylar 1.5 mg capsule 1.5 mg PO DAILY escitalopram oxalate 20 mg tablet 20 mg PO DAILY cetirizine 5 mg Tablet 5 mg PO DAILY PRN (Reason: Allergy Symptoms) norgestimate-ethinyl estradiol [Mce-[id number]] 0.18/0.215/0.25 mg-25 mcg tablet 1 tablet PO DAILY Qty: 112 3RF Rx Instructions: take 1 tablet by mouth daily in continuous manner skipping the placebo pills Follow-up/Referrals: PHYSICIAN,[facility] ADMIN [Primary Care Provider] - 2 Weeks Time of Disposition: 10:49
[2024-08-30 10:23] VITALS: BP 121/82; PULSE 107; RESP 20; TEMP 36.6; O2SAT 99
[2024-08-30 10:37] LABS: EDCOVIDSCREEN Negative (Negative); EDINFLUASCREEN Negative (Negative); EDINFLUBSCREEN Negative (Negative); EDSTREPNEGPOS1 Negative (Negative)
== END 2024-08-30 10:55 | disposition home or self-care (01) ==
PROVIDERS: Emergency Provider Nurse Practitioner Family
DX: J06.9 Acute upper respiratory infection, unspecified (principal); Z20.822 Contact with and (suspected) exposure to COVID-19; F12.90 Cannabis use, unspecified, uncomplicated; E28.2 Polycystic ovarian syndrome; E66.9 Obesity, unspecified; F41.9 Anxiety disorder, unspecified; F32.A Depression, unspecified
CPT/HCPCS: 87081; 87426; 87804; 87880; 99213; G0463